=== PATIENT | male | born 1965 | race African-American/Black ===

== ENCOUNTER 2022-06-09 14:40 | Emergency (ER) | payer MEDICAID, OTHER ==
[~2022-06-09] VITALS: Ht 185.4 cm; Wt 100.0 kg
[2022-06-09 14:51] VITALS: BP 145/90
[2022-06-10] MEDS ORDERED: NAPR-1176 PO (14:39)
== END 2022-06-09 22:20 | disposition left against medical advice (07) ==
LOC: ER 14:58
DX: Z53.21 Procedure and treatment not carried out due to patient leaving prior to being seen by health care provider (principal)
CPT/HCPCS: 99283

== ENCOUNTER 2022-06-10 12:27 | Emergency (ER) | payer MEDICAID, OTHER ==
[~2022-06-10] VITALS: Ht 188 cm; Wt 80.0 kg
[2022-06-10 12:50] VITALS: BP 146/95
[2022-06-10] MEDS ORDERED: NAPR-1176 PO (14:39)
== END 2022-06-10 15:16 | disposition home or self-care (01) ==
LOC: ER 12:27
DX: M54.2 Cervicalgia (principal); M54.12 Radiculopathy, cervical region; W22.09XA Striking against other stationary object, initial encounter; Y93.89 Activity, other specified; Y92.520 Airport as the place of occurrence of the external cause; Y99.8 Other external cause status
CPT/HCPCS: 99284